=== PATIENT | female | born 1995 | race Caucasian/White ===

== ENCOUNTER 2018-12-04 12:19 | Emergency (ER) | payer OTHER ==
[~2018-12-04] VITALS: Ht 157.5 cm; Wt 54.9 kg
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
[2018-12-04] MEDS ORDERED: IBUPROFEN 400 MG TABLET ONE (13:37)
[2018-12-04] MEDS: IBUPROFEN 400 MG TABLET PO ONE (13:39)
[2018-12-04 14:20] VITALS: BP 110/65
--- NOTE | 2018-12-04 14:20 | NUR ---
Patient discharged to home in stable condition. Written and verbal after care instructions given. Patient verbalizes understanding of instruction.
== END 2018-12-04 14:20 | disposition home or self-care (01) ==
LOC: ER 12:25
DX: S16.1XXA Strain of muscle, fascia and tendon at neck level, initial encounter (principal); Z98.890 Other specified postprocedural states; V49.49XA Driver injured in collision with other motor vehicles in traffic accident, initial encounter; Y93.89 Activity, other specified; Y92.488 Other paved roadways as the place of occurrence of the external cause; Y99.8 Other external cause status
CPT/HCPCS: 72050-TC